=== PATIENT | female | born 1990 | race Caucasian/White ===

== ENCOUNTER 2025-01-08 20:41 | Outpatient (CLI) | payer BC, SELFPAY ==
[2025-01-08 21:01] VITALS: BP 119/65; PULSE 79
[2025-01-08 21:16] VITALS: BP 116/70; PULSE 82
[2025-01-08 21:31] VITALS: BP 122/64; PULSE 81
[2025-01-08 21:50] VITALS: BP 119/65; PULSE 65
--- NOTE | 2025-01-08 22:14 | PC.NURSE ---
Pt discharged in stable condition per order from Dr. Ocasio. Discharge orders explained. All questions and conerns answered. Pt amubalted out of department with all belongings. S.O @ pt side.
--- OUTSIDE RECORDS SUMMARY | 2025-01-09 15:32 | XMS_ITS | Encounter Summary ---
Author Organization [facility] Address [address] [place] [address] Care Team Providers Care Technical Applications Scientist Name Role Phone Maryann Pool DO Primary Care Provider [phone] Encounter Details Date Type Department Care Team (Late st Contact Info) Description 06/26/2023 Lab Requisition [facility] Laboratory Services [facility] [address] [place] [address] [place] [address] [address] [place] [address] Social History Tobacco Use Types Packs/Day Years Used Date Smoking Tobacco: Never Smokeless Tobacco: Never Alcohol Use Standard Drinks/Week Comments Yes 0 (1 standard drink = 0.6 oz pur e alcohol) Comments No Sex and Gender Information Value Date Recorded Sex Assigned at Not on file Legal Sex Female 9:47 PM CDT Gender Identity Not on file Sexual Orientation Not on file documented as of this encounter Plan of Treatment Not on file documented as of this encounter Procedures Procedure Name Priority Date/Time Associated Diagnosis Comments SOURCE NEEDLESTICK PANEL Stat 06/26/2023 3:05 PM CDT EXPOSURE PANEL COMPLETION Stat 06/26/2023 3:05 PM CDT EXPOSURE PANEL COMPLETION Stat 06/26/2023 3:05 PM CDT EXPOSED NEEDLESTICK PANEL Stat 06/26/2023 3:05 PM CDT HIV DETECTION W/REFLX CONFIRMATION Stat 06/26/2023 3:05 PM CDT HIV DETECTION W/REFLX CONFIRMATION Stat 06/26/2023 3:05 PM CDT HEPATITIS C RNA PCR, QUANTITATIVE Stat 06/26/2023 3:05 PM CDT HEPATITIS B SURFACE ANTIGEN Stat 06/26/2023 3:05 PM CDT HEPATITIS C ANTIBODY Stat 06/26/2023 3:05 PM CDT documented in this encounter Results * EXPOSURE PANEL COMPLETION (06/26/2023 3:05 PM CDT) EXPOSURE PANEL RECEIVED Yes 06/27/2023 9:31 AM CDT [facility] Blood 06/26/2023 3:05 PM CDT 06/27/2023 9:14 AM CDT Pierre Torrez MD CHEMISTRY ORDERABLES Final R esult [facility] CLIA# [id number] [address] [place] [address] * HEPATITIS B SURFACE ANTIGEN (06/26/2023 3:05 PM CDT) Pathologist [facility] HEPATITIS B SURFACE AG NON-REACT LÁZARO Non-react lázaro 06/27/2023 10:07 AM CDT [facility] Comment:A non-reactive test result does not exclude the possibility of exposure to or infection with hepatitis B. Blood 06/26/2023 3:05 PM CDT 06/27/2023 9:14 AM CDT Pierre Torrez MD CHEMISTRY ORDERABLES Final R esult [facility] CLIA# [id number] [address] [facility] [place] [address] * HEPATITIS C RNA PCR, QUANTITATIVE (06/26/2023 3:05 PM CDT) HCV RNA, QUANT REAL TIME PCR <15 NOT DETECTED NOT DETECTED IU/mL 06/28/2023 12:45 PM CDT [facility] HCV RNA QUANT PCR COPIES IU/ML <1.18 NOT DETECTED NOT DETECTED Log IU/mL 06/28/2023 12:45 PM CDT [facility] Comment: This test was performed using Real-Time Polymerase Chain Reaction. Reportable Range: 15 IU/mL to 100,000,000 IU/mL (1.18 Log IU/mL to 8.00 Log IU/mL). The analytical performance characteristics of this assay have been determined by [employer]. The modifications have not been cleared or approved by the FDA. This assay has been validated pursuant to the CLIA regulations and is used for clinical purposes. For more information on this test, go to: http://education.Ctrax/faq/BPR63z1 (This link is being provided for informational/ educational purposes only.) Blood 06/26/2023 3:05 PM CDT 06/27/2023 9:14 AM CDT Narrative [facility] - 06/28/2023 12:45 PM CDT Performing Organization Information: Site ID: [place] Name[facility] Address: [address] [place] [address] [place] [address] Director: Aureliano Falcon MD Pierre Torrez MD CHEMISTRY ORDERABLES Final R esult [facility] [phone] * HIV DETECTION W/REFLX CONFIRMATION (06/26/2023 3:05 PM CDT) Pathologist [facility] HIV-1 AND 2 ABS AND HIV-1 AG Non-reacti ve Non-reacti ve 06/27/2023 9:30 AM CDT [facility] Blood 06/26/2023 3:05 PM CDT 06/27/2023 9:14 AM CDT Narrative [facility] - 06/27/2023 9:30 AM CDT Initial HIV testing was performed by [employer] on the Nasima Dionisio e602 module. Values obtained with different assay methods cannot be used interchangeably. Non- Reactive results does not rule out HIV infection. If acute HIV-1 infection is suspected, submit plasma specimen for HIV-1 RNA quantification test (HIVQU). Pierre Torrez MD CHEMISTRY ORDERABLES Final R esult Performing Organization Address City/[facility] Co de Phone Number [facility] CLIA# [id number] [address] [place] [address] * EXPOSURE PANEL COMPLETION (06/26/2023 3:05 PM CDT) [facility] EXPOSURE PANEL RECEIVED Yes 06/26/2023 4:31 PM CDT [facility] Blood 06/26/2023 3:05 PM CDT 06/26/2023 3:19 PM CDT Pierre Torrez MD CHEMISTRY ORDERABLES Final R esult Performing Organization Address [facility] Co de Phone Number [facility] CLIA# [id number] [address] [place] [address] * HEPATITIS C ANTIBODY W REFLEX (06/26/2023 3:05 PM CDT) Pathologist [facility] HEPATITIS C AB NON-REACT LÁZARO Non-react lázaro 06/26/2023 4:09 PM CDT [facility] Comment:Antibodies to HCV we re not detected, does not exclude the possibility of exposure to HCV. Blood 06/26/2023 3:05 PM CDT 06/26/2023 3:19 PM CDT Pierre Torrez MD CHEMISTRY ORDERABLES Final R esult Performing Organization Address City/[facility] Co de Phone Number [facility] [employer] [facility]# [id number] [address] [place] [address] * HIV DETECTION W/REFLX CONFIRMATION (06/26/2023 3:05 PM CDT) HIV-1 AND 2 ABS AND HIV-1 AG Non-reacti ve Non-reacti ve 06/26/2023 4:09 PM CDT [facility] [employer] [facility] Blood 06/26/2023 3:05 PM CDT 06/26/2023 3:19 PM CDT Narrative [facility] [employer] [facility] - 06/26/2023 4:09 PM CDT Initial HIV testing was performed by [employer] on the Nasima Dionisio e602 module. Values obtained with different assay methods cannot be used interchangeably. Non- Reactive results does not rule out HIV infection. If acute HIV-1 infection is suspected, submit plasma specimen for HIV-1 RNA quantification test (HIVQU). Pierre Torrez MD CHEMISTRY ORDERABLES Final R esult Performing Organization Address City/[facility]/ZIP Co de Phone Number [facility] [employer] [facility]# [id number] [address] [place] [address] documented in this encounter Visit Diagnoses Not on filedocumented in this encounter Care Teams Technical Applications Scientist Relationship Specialty [place] [address] [place] [phone] PCP - General Internal Medicine 08/14/23 documented as of this encounter
--- OUTSIDE RECORDS SUMMARY | 2025-01-09 15:32 | XMS_ITS | Clinical Summary ---
Author Organization [facility] Address [address] [place] [address] Phone Care Team Providers Care Reduction Furnace Operator Helper Name Role Phone Maryann Pool DO Primary Care Provider [phone] Allergies Active Allergy Reactions Criticality Noted Date Comments Avocado Nausea and Vomiting Low 04/25/2023 Banana Diarrhea Low 08/03/2020 Latex Hives High 08/03/2020 Medications ibuprofen (MOTRIN) 200 mg tablet Take 400 mg by mouth every 6 hours as needed for Pain, Mild. Active MELATONIN ORAL Take 10 mg by mouth daily at bedtime. Active acetaminophen (TYLENOL) 325 mg tabletIndication s:Chronic bilateral low back pain with bilateral sciatica Take 2 Tablets (650 mg) by mouth every 6 hours as needed for Pain, Break-Through. 0 Active sulfamethoxazole -trimethoprim (BACTRIM) 400-80 mg tabletIndication s:Need for prophylaxis against urinary tract infection Take 1 Tablet by mouth 1 time daily as needed (after intercourse). 50 Tablet 3 09/05/2022 1:48 PM CAMPAIGN MANAGEMENT SPECIALIST 2 Active hydrocortisone (HYTONE) 2.5 % Cream Apply topically a thin layer to upper eyelid twice daily for up to 1 week as needed for flares 30 Gram 2 09/26/2022 12:29 PM CAMPAIGN MANAGEMENT SPECIALIST 3 Active Mometasone (ELOCON) 0.1 % Solution Apply small amount to scalp, neck and ears twice daily x 1-2 weeks as needed for itch 60 mL 3 09/26/2022 12:29 PM CAMPAIGN MANAGEMENT SPECIALIST 3 Active selenium sulfide (SELSUN) 2.5 % Lotion Apply topically to scalp let sit 5 min then rinse daily as needed 120 mL 10 09/26/2022 12:29 PM CAMPAIGN MANAGEMENT SPECIALIST 3 Active sertraline (Zoloft) 25 mg tabletIndication s:MATILDA (generalized anxiety disorder) Take 1 Tablet (25 mg) by mouth daily. 30 Tablet 1 05/06/2024 8:45 AM CDT 4 Active Active Problems Problem Noted Date Diagnosed Date MATILDA (generalized anxiety disorder) 04/27/2024 Chronic bilateral low back pain with bilateral s ciatica 08/10/2021 Overview (08/10/2021): Will prescribe steroid taper if has a flair up. Exercising and eating healthy to prevent. Need for prophylaxis against urinary tract infec tion 08/03/2020 IUD (intrauterine device) in place 08/03/2020 Overview (08/03/2020): Paraguard 06/2019. Expires 2028. Encounters Date Type Department Care Team Description 12/22/2024 External Device Data [facility] ABSTRACTION Provider, Abstract 11/25/2024 External Device Data [facility] ABSTRACTION Provider, Abstract 11/25/2024 External Device Data [facility] ABSTRACTION Provider, Abstract 11/14/2024 External Device Data [facility] ABSTRACTION Provider, Abstract 11/13/2024 External Device Data [facility] ABSTRACTION Provider, Abstract 11/10/2024 External Device Data [facility] ABSTRACTION Provider, Abstract 10/28/2024 External Device Data [facility] ABSTRACTION Provider, Abstract 10/27/2024 External Device Data [facility] ABSTRACTION Provider, Abstract from Last 3 Months Immunizations Immunization Administration Dates Next Due (ACTHIB/HIBERIX)(2 MOS-5 YRS /6 WKS-4 YRS) HAEMOPHILUS INFLUENZAE TYPE B VACCINE (HIB), PRP-T CONJUGATE, 4 DOSE, 0.5 ML IM 06/17/1993 (ADACEL/BOOSTRIX)(10 YR UP) TDAP VACCINE, 0.5ML, IM 12/11/2018 (GARDASIL)(9-45 YRS) HUMAN PAPILLOMAVIRUS VACCINE, TYPES 6, 11, 16, 18, QUADRIVALENT (4VHPV), 3 DOSE, IM 11/20/2010 (INFANRIX)(6 WKS-6 YRS) DIPT HERIA, TETANUS TOXOIDS, AND ACCELLULAR PERTUSSIS VACCINE (DTAP), 0.5 ML IM 06/17/1993,1989,1989 (IPOL)(6 WKS AND UP) POLIOVI LOBO VACCINE, INACTIVATED (IPV), 3 DOSE, SUBCUT OR IM 06/17/1993,1989,1989 (M-M-R II/PRIORIX)(12 MO UP) MEASLES, MUMPS AND RUBELLA VIRUS VACCINE, 0.5 ML IM/SUBCUT 01/12/1994,06/17/1993 (MENACTRA)(9 MO-55 YR) MENIN GOCOCCAL POLYSACCHARIDE A, C, Y AND W-135 DIPTHERIA TOXOID CONJUGATE VACCINE, (PF), 0.5ML, IM 12/05/2006 (PFIZER)(12 YR UP) COVID-19 VACCINE - EMERGENCY USE AUTHORIZATION, MRNA, [id number](PF) 30 MCG/0.3 ML IM SUSP 08/08/2021,09/23/2020,08/31/2020 (RECOMBIVAX HB/ENGERIX-B)(11 YR UP) HEPATITIS B VACCINE 10 MCG/1 ML OR 20 MCG/1 ML ADOL OR ADULT 2 - 3 DOSE PF, IM 02/01/2021,11/04/2020,08/03/2020 (VARIVAX)(12 MOS UP)VARICELL A VIRUS VACCINE (PF) 0.5 ML, SUB CUT 12/29/2018 DTP IM 04/19/2000,04/05/1990 Hepatitis B Vaccine 12/29/2000,05/31/2000,1999 Influenza Seasonal Unspecifi ed Formulation IM 06/09/2024,05/17/2023,06/20/2022,05/16,06/28/2020,06/01/2019,07/01/2018 Family History Medical History Relation Name Comments Thyroid Disease Brother Rylan Arceo Hypothyroidi sm Diabetes Father Klever Arceo Heart Disease Father Klever Chaudharyuld Breast Cancer Maternal Grandmother Tangela Adis Relation Name Status Comments Brother Rylan Arceo Alive Father Klever Arceo Maternal Grandmother Tangela Adis Mother Alive Social History Tobacco Use Types Packs/Day Years Used Date Smoking Tobacco: Never Passive Smoke Exposure: Never Smokeless Tobacco: Never Tobacco Cessation:Counseling Given: No Comments:Never Alcohol Use Standard Drinks/Week Comments Not Currently 1 (1 standard drink = 0.6 oz pure alcohol) Socially, a couple times a month Comments No Sex and Gender Information Value Date Recorded Sex Assigned at Not on file Legal Sex Female 9:47 PM CDT Gender Identity Not on file Sexual Orientation Not on file Last Filed Vital Signs Vital Sign Reading Time Taken Comments Blood Pressure 122/64 04/23/2024 3:22 PM CDT Pulse 79 03/26/2024 7:56 AM CDT Temperature 36.6 C (97.8 F) 03/26/2024 7:56 AM CDT Respiratory Rate 14 08/10/2021 4:22 PM CAMPAIGN MANAGEMENT SPECIALIST Oxygen Saturation 99% 03/26/2024 7:56 AM CDT Inhaled Oxygen Concentration - - Weight 86.2 kg (190 lb) 04/27/2024 9:49 AM CDT Height 172.7 cm (5' 8 ) 04/27/2024 9:49 AM CDT Body Mass Index 28.89 04/27/2024 9:49 AM CDT Plan of Treatment Health Maintenance Due Date Last Done Comments HPV VACCINES (2 - 3-dose series) 12/18/2010 11/21/19 11 COVID-19 Vaccine (2023-2 5 season) 2024 08/08/2021, 09/23/2020, 08/31/2020 Preventative Visit- Commercial 09/09/2024 1 10/15/2022, 04/25/2023, 09/04/2022, Additional history exists PAP SMEAR 04/25/2026 04/25/2023, 09/09/2018 Pre-Diabetes and Diabetes Screening 08/23/2026 08/23/2023, 09/12/2022, 08/19/2020 CERVICAL CANCER SCREENING 04/25/2028 HPV/Cotest (21-29) 04/25/2028 04/25/2023 HPV/Cotest (30-65) 04/25/2028 04/25/2023 DTAP/TDAP/TD VACCINES (5 - T d or Tdap) 12/11/2028 12/11/2018, 06/17/1993, 1989, Additional history exists HEPATITIS B VACCINES Completed 02/01/2021, 11/04/2020, 08/03/2020, Additional history exists INFLUENZA VACCINE Completed 06/09/2024, , 06/20/2022, Additional history exists Procedures Procedure Name Priority Date/Time Associated Diagnosis Comments HEMOGLOBIN A1C Routine 08/23/2023 9:14 AM CAMPAIGN MANAGEMENT SPECIALIST Annual physical exam Screening for diabetes mellitus CERV/VAG CYTO AGE BASED SCREEN PAP Routine 04/25/2023 10:53 AM CDT Well woman exam with routine gynecological exam from Last 3 Months or Most Recently Relevant to Health Maintenance Results * HEMOGLOBIN A1C (08/23/2023 9:14 AM CAMPAIGN MANAGEMENT SPECIALIST) HEMOGLOBIN A1C 4.9 <5.7 % of total Hgb [employer] Comment: For the purpose of screening for the presence of diabetes: <5.7% Consistent with the absence of diabetes 5.7-6.4% Consistent with increased risk for diabetes (prediabetes) > or =6.5% Consistent with diabetes This assay result is consistent with a decreased risk of diabetes. Currently, no consensus exists regarding use of hemoglobin A1c for diagnosis of diabetes in children. According to [place] Diabetes Association (ADA) guidelines, hemoglobin A1c <7.0% represents optimal control in non- diabetic patients. Different metrics may apply to specific patient populations. Standards of Medical Care in Diabetes(ADA). ESTIMATED AVERAGE GLUCOSE (MG/DL) 94 mg/dL [employer] [facility] ESTIMATED AVERAGE GLUCOSE (MMOL/L) 5.2 mmol/L [employer] Comment: FASTING:YES FASTING: YES Test Performed at: [place] [address] [place] [address] [facility] Blood 08/23/2023 9:14 AM CAMPAIGN MANAGEMENT SPECIALIST 08/23/2023 9:15 AM CAMPAIGN MANAGEMENT SPECIALIST us Maryann Pool DO CHEMISTRY ORDERABLES Final Resul t [facility] [phone] [place] [address] [address] [place] [phone] * (ABNORMAL) CERV/VAG CYTO AGE BASED SCREEN PAP (04/25/2023 10:53 AM CDT) COMMENT (PAP): [facility] [place] Comment: This order for age-based cervical cancer and STI screening follows ACOG guidelines(PB 168, 140, PCC032). See individual assays for performing site location. CLINICAL INFORMATION [facility] [place] Comment:None given LAST MENSTRUAL PERIOD [facility] [place] Comment:[id number] PREV PAP: [facility] [place] Comment:NONE GIVEN PREV BX: [facility] [place] Comment:NONE GIVEN SOURCE [facility] [place] Comment:Endocervix ADEQUACY: [facility] [place] Comment: Satisfactory for evaluation. Endocervical/transformation zone component present. PAP INTERP [facility] [place] Comment: Cytology Results: Negative for intraepithelial lesion or malignancy. COMMENT (PAP TEST) [facility] [place] Comment: This Pap test has been evaluated with computer assisted technology. VISUAL ARTIST: Delfino est Agusto Gao Comment: BHAVANAK CT(ASCP) CT screening location: [place] [address] [address] [facility] REVIEW VISUAL ARTIST: [employer] BiosciencesJodie Gao Comment: SHIRLEY LEVINE(ASCP) CT screening location: [place] [address] [address] [facility] EXPLANATORY NOTE [employer] Agusto Gao Comment: EXPLANATORY NOTE: The Pap is a screening test for cervical cancer. It is not a diagnostic test and is subject to false negative and false positive results. It is most reliable when a satisfactory sample, regularly obtained, is submitted with relevant clinical findings and history, and when the Pap result is evaluated along with historic and current clinical information. HPV E6/E7 Detected(A) Not Detected [facility] Comment: Methodology: Ski Binding Fitter And Repairer-Mediated Amplification This assay detects E6/E7 viral messenger RNA (mRNA) from 14 high-risk HPV types (16,18,31,33,35,39,45,51,52,56,58,59,66,68). Cervical sources are required for HPV testing. If a vaginal source from a patient who has had a total hysterectomy with removal of cervix was submitted, please contact the testing laboratory for alternative testing options. For additional information, please refer to http://education.[place]/faq/ZQQ523d2 (This link if provided for information/ educational purposes only.) HPV 16 RNA NOT DETECTED NOT DETECTED [employer] HPV 18/45 RNA NOT DETECTED NOT DETECTED [employer] [facility] [place] Comment: Methodology: Ski Binding Fitter And Repairer Mediated Amplification Cervical sources are required for HPV testing. If a vaginal source from a patient who has had a total hysterectomy with removal of cervix was submitted, please contact the testing laboratory for alternative testing options. Test Performed at: [facility] [address] [facility] [place] [address] Aureliano SOTO Genital SWAB OF ENDOCERVIX / Unknown 04/25/2023 10:53 AM CDT 04/25/2023 2:14 PM CDT Dahlia Maldonado SHEET COMBINING OPERATOR PATHOLOGY/CYTOLOGY ORDERABLES F inal Result [facility] [phone] [place] [address] [address] [place] [address] from Last 3 Months or Most Recently Relevant to Health Maintenance Insurance RX [employer] PLANS (INTERNAL) [facility] [employer] [facility] [employer] Care Teams Reduction Furnace Operator Helper Relationship Specialty [place] [address] [facility] [address] [place] [id number] PCP - General Internal Medicine 08/14/23
== END 2025-01-08 21:45 | disposition home or self-care (01) ==
LOC: ANHOBOP 20:57 → ANHOBPP 20:59
PROVIDERS: Visit Provider Obstetrics & Gynecology
DX: Z34.90 Encounter for supervision of normal pregnancy, unspecified, unspecified trimester (principal); Z3A.00 Weeks of gestation of pregnancy not specified
CPT/HCPCS: 59025; 99199

== ENCOUNTER 2025-04-08 16:25 | Outpatient (RCR) | payer BC, SELFPAY ==
[2025-04-03 12:28] VITALS: BP 128/83; PULSE 97
[2025-04-08 17:02] VITALS: BP 133/82; PULSE 92
== END 2025-04-13 11:45 | disposition home or self-care (01) ==
LOC: ANHOBOP 16:25
PROVIDERS: Visit Provider Obstetrics & Gynecology
DX: O36.8130 Decreased fetal movements, third trimester, not applicable or unspecified (principal); Z3A.39 39 weeks gestation of pregnancy; Z3A.40 40 weeks gestation of pregnancy
CPT/HCPCS: 59025

== ENCOUNTER 2025-04-11 15:56 | Inpatient (IN) | payer BC, SELFPAY ==
[2025-04-11] VITALS (30 sets, daily range): BP systolic 130–158; BP diastolic 75–98; PULSE 75–89; TEMP 36.6; BMI 35.4
--- NOTE | 2025-04-11 15:56 | LDADM ---
This patient, Flaca Villarreal, was admitted to Labor/Delivery/Recovery 108 on 04/11/25 at 15:56. Plans for labor, pain management and were discussed with patient. Patient/family oriented to hospital policies and general routines including ID bracelet, bed and alarms, visiting hours, pain management, procedures, bathroom and other care routines, personal items, smoking policy, room service/diet and guest tray routines, security routines, and visiting hours. Patient/Family are encouraged to report perceived risks to care and to ask questions if they do not understand what they are told or what they should do. See OBIX for further documentation.
--- OUTSIDE RECORDS SUMMARY | 2025-04-11 15:59 | XMS_ITS | Encounter Summary ---
Author Organization [facility] Address [address] [place] [address] Care Team Providers Care Distribution Field Technician Name Role Phone Maryann Pool DO Primary Care Provider [phone] Encounter Details Date Type Department Care Team (Late st Contact Info) Description 06/26/2023 Lab Requisition [facility] Laboratory Services [facility] [address] [place] [address] [place] [address] [facility] [address] [place] [address] Social History Tobacco Use Types [...] PANEL RECEIVED Yes 06/27/2023 9:31 AM CDT [facility] Blood 06/26/2023 3:05 PM CDT 06/27/2023 9:14 AM CDT Pierre Torrez MD CHEMISTRY ORDERABLES Final R esult [facility] CLIA# [id number] [address] [place] [address] * HEPATITIS B SURFACE ANTIGEN (06/26/2023 3:05 PM CDT) Pathologist [facility] HEPATITIS B SURFACE AG NON-REACT LÁZARO Non-react lázaro 06/27/2023 10:07 AM CDT [facility] Comment:A non-reactive test result does not exclude the possibility of exposure to or infection with hepatitis B. Blood 06/26/2023 3:05 PM CDT 06/27/2023 9:14 AM CDT Pierre Torrez MD CHEMISTRY ORDERABLES Final R esult [facility] CLIA# [id number] [address] [facility] [place] [address] * HEPATITIS C RNA PCR, QUANTITATIVE (06/26/2023 3:05 PM CDT) HCV RNA, QUANT REAL TIME PCR <15 NOT DETECTED NOT DETECTED IU/mL 06/28/2023 12:45 PM CDT [facility] HCV RNA QUANT PCR COPIES IU/ML <1.18 NOT DETECTED NOT DETECTED Log IU/mL 06/28/2023 12:45 PM CDT [facility] Comment: This test was performed using Real-Time Polymerase Chain Reaction. Reportable Range: 15 IU/mL to 100,000,000 IU/mL (1.18 Log IU/mL to 8.00 Log IU/mL). The analytical performance characteristics of this assay have been determined by [employer]. The modifications have not been cleared or approved by the FDA. This assay has been validated pursuant to the CLIA regulations and is used for clinical purposes. For more information on this test, go to: http://education.Brainrack/faq/WLE53e9 (This link is being provided for informational/ educational purposes only.) Blood 06/26/2023 3:05 PM CDT 06/27/2023 9:14 AM CDT Narrative [facility] - 06/28/2023 12:45 PM CDT Performing Organization Information: Site ID: [id number] Name: [facility] Address: [address] [place] [address] [place] [address] Director: Aureliano Falcon MD Pierre Torrez MD CHEMISTRY ORDERABLES Final R esult [facility] [phone] * HIV DETECTION W/REFLX CONFIRMATION (06/26/2023 3:05 PM CDT) Pathologist [facility] HIV-1 AND 2 ABS AND HIV-1 AG Non-reacti ve Non-reacti ve 06/27/2023 9:30 AM CDT [facility] Blood 06/26/2023 3:05 PM CDT 06/27/2023 9:14 AM CDT Narrative [facility] - 06/27/2023 9:30 AM CDT Initial HIV testing was performed by [employer] on the Nasima Dionisio e602 module. Values obtained with different assay methods cannot be used interchangeably. Non- Reactive results does not rule out HIV infection. If acute HIV-1 infection is suspected, submit plasma specimen for HIV-1 RNA quantification test (HIVQU). Pierre Torrez MD CHEMISTRY ORDERABLES Final R esult Performing Organization Address [facility] Co de Phone Number [facility] CLIA# [id number] [address] [place] [address] * EXPOSURE PANEL COMPLETION (06/26/2023 3:05 PM CDT) [facility] EXPOSURE PANEL RECEIVED Yes 06/26/2023 4:31 PM CDT [facility] Blood 06/26/2023 3:05 PM CDT 06/26/2023 3:19 PM CDT Pierre Torrez MD CHEMISTRY ORDERABLES Final R esult Performing Organization Address [facility] Co de Phone Number [facility] CLIA# [id number] [address] [place] [address] * HEPATITIS C ANTIBODY W REFLEX (06/26/2023 3:05 PM CDT) Pathologist [facility] HEPATITIS C AB NON-REACT LÁZARO Non-react lázaro 06/26/2023 4:09 PM CDT [facility] Comment:Antibodies to HCV we re not detected, does not exclude the possibility of exposure to HCV. Blood 06/26/2023 3:05 PM CDT 06/26/2023 3:19 PM CDT Pierre Torrez MD CHEMISTRY ORDERABLES Final R esult Performing Organization Address [facility] Co de Phone Number [facility]# [id number] [address] [place] [address] * HIV DETECTION W/REFLX CONFIRMATION (06/26/2023 3:05 PM CDT) HIV-1 AND 2 ABS AND HIV-1 AG Non-reacti ve Non-reacti ve 06/26/2023 4:09 PM CDT [facility] Blood 06/26/2023 3:05 PM CDT 06/26/2023 3:19 PM CDT Narrative [facility] - 06/26/2023 4:09 PM CDT Initial HIV testing was performed by [employer]CL[employer] on the Nasima Dionisio e602 module. Values obtained with different assay methods cannot be used interchangeably. Non- Reactive results does not rule out HIV infection. If acute HIV-1 infection is suspected, submit plasma specimen for HIV-1 RNA quantification test (HIVQU). Pierre Torrez MD CHEMISTRY ORDERABLES Final R esult Performing Organization Address [facility]/ZIP Co de Phone Number [facility]# [id number] [address] [place] [address] documented in this encounter Visit Diagnoses Not on filedocumented in this encounter Care Teams Distribution Field Technician Relationship Specialty [place] [address] [place] [phone] PCP - General Internal Medicine 08/14/23 documented as of this encounter
--- OUTSIDE RECORDS SUMMARY | 2025-04-11 15:59 | XMS_ITS | Clinical Summary ---
Author Organization [facility] Address [address] [place] [address] Phone Care Team Providers Care Grinding Room Supervisor Name Role Phone Maryann Pool DO Primary Care Provider [phone] Allergies Active Allergy Reactions Criticality Noted Date [...] intercourse). 50 Tablet 3 09/05/2022 1:48 PM [employer]ION [employer] EQUIPMENT SUPERVISOR 2 Active hydrocortisone (HYTONE) 2.5 % Cream Apply topically a thin layer to upper eyelid twice daily for up to 1 week as needed for flares 30 Gram 2 09/26/2022 12:29 PM [employer]ION [employer]URE EQUIPMENT SUPERVISOR 3 Active Mometasone (ELOCON) 0.1 % Solution Apply small amount to scalp, neck and ears twice daily x 1-2 weeks as needed for itch 60 mL 3 09/26/2022 12:29 PM MOTION PI[employer]URE EQUIPMENT SUPERVISOR 3 Active selenium sulfide (SELSUN) 2.5 % Lotion Apply topically to scalp let sit 5 min then rinse daily as needed 120 mL 10 09/26/2022 12:29 PM MOTION PI[employer]URE EQUIPMENT SUPERVISOR 3 Active sertraline (Zoloft) 25 mg tabletIndication [...] Encounters Date Type Department Care Team Description 03/24/2025 External Device Data ST[facility] ABSTRACTION Provider, Abstract 03/23/2025 External Device Data [facility] ABSTRACTION Provider, Abstract 03/02/2025 External Device Data [facility] ABSTRACTION Provider, Abstract 02/23/2025 External Device Data [facility] ABSTRACTION Provider, Abstract 01/28/2025 External Device Data ST[facility] ABSTRACTION Provider, Abstract 01/27/2025 External Device Data ST[facility] ABSTRACTION Provider, Abstract 01/26/2025 External Device Data ST[facility] ABSTRACTION Provider, Abstract [...] COVID-19 VACCINE - EMERGENCY USE AUTHORIZATION, MRNA, [id number](PF) 30 MCG/0.3 ML IM SUSP 08/08/2021,09/23/2020,08/31/2020 (RECOMBIVAX [...] Father Klever Arceo Heart Disease Father Klever Arceo Breast Cancer Maternal Grandmother Tangela Arceo Relation Name Status Comments Brother Rylan Arceo Alive Father Klever Arceo Maternal Grandmother Tangela Arceo Mother Alive Social History Tobacco Use Types [...] CDT Respiratory Rate 14 08/10/2021 4:22 PM MOTION PI[employer]URE EQUIPMENT SUPERVISOR Oxygen Saturation 99% 03/26/2024 7:56 AM CDT Inhaled Oxygen Concentration - - Weight 86.2 kg (190 lb) 04/27/2024 9:49 AM CDT Height 172.7 cm (5' 8) 04/27/2024 9:49 AM CDT Body Mass Index 28.89 04/27/2024 9:49 AM CDT Plan of Treatment Health Maintenance Due Date Last Done Comments HPV VACCINES (2 - 3-dose series) 12/18/2010 11/21/19 11 COVID-19 Vaccine (2023-2 5 season) 2024 08/08/2021, 09/23/2020, 08/31/2020 Preventative Visit- Commercial 09/09/2024 1 10/15/2022, 04/25/2023, 09/04/2022, Additional history exists INFLUENZA VACCINE (#1) 2025 , 05/17/2023, 06/20/2022, Additional history exists PAP SMEAR 04/25/2026 04/25/2023, 09/09/2018 Pre-Diabetes and Diabetes Screening 08/23/2026 08/23/2023, 09/12/2022, 08/19/2020 CERVICAL CANCER SCREENING 04/25/2028 HPV/Cotest (21-29) 04/25/2028 04/25/2023 HPV/Cotest (30-65) 04/25/2028 04/25/2023 DTAP/TDAP/TD VACCINES (5 - T d or Tdap) 12/11/2028 12/11/2018, 06/17/1993, 1989, Additional history exists HEPATITIS B VACCINES Completed 02/01/2021, 11/04/2020, 08/03/2020, Additional history exists Procedures Procedure Name Priority Date/Time Associated Diagnosis Comments HEMOGLOBIN A1C Routine 08/23/2023 9:14 AM [employer]ION [employer] EQUIPMENT SUPERVISOR Annual physical exam Screening for diabetes mellitus CERV/VAG CYTO AGE BASED SCREEN PAP Routine 04/25/2023 10:53 AM CDT Well woman exam with routine gynecological exam from Last 3 Months or Most Recently Relevant to Health Maintenance Results * HEMOGLOBIN A1C (08/23/2023 9:14 AM MOTION PICTURE EQUIPMENT SUPERVISOR) HEMOGLOBIN A1C 4.9 <5.7 % of total Hgb [facility] Comment: For the purpose of screening for the presence of diabetes: <5.7% Consistent with the absence of diabetes 5.7-6.4% Consistent with increased risk for diabetes (prediabetes) > or =6.5% Consistent with diabetes This assay result is consistent with a decreased risk of diabetes. Currently, no consensus exists regarding use of hemoglobin A1c for diagnosis of diabetes in children. According to [place] Diabetes Association (ADA) guidelines, hemoglobin A1c <7.0% represents optimal control in non- diabetic patients. Different metrics may apply to specific patient populations. Standards of Medical Care in Diabetes(ADA). ESTIMATED AVERAGE GLUCOSE (MG/DL) 94 mg/dL [facility] ESTIMATED AVERAGE GLUCOSE (MMOL/L) 5.2 mmol/L [facility] Comment: FASTING:YES FASTING: YES Test Performed at: [place] [place] [address] [place] [address] [facility]i Vo Blood 08/23/2023 9:14 AM MOTION PICTURE EQUIPMENT SUPERVISOR 08/23/2023 9:15 AM MOTION PICTURE EQUIPMENT SUPERVISOR us Maryann Pool DO CHEMISTRY ORDERABLES Final Resul t [facility] [phone] [place] [address] [address] [place] [address] * (ABNORMAL) CERV/VAG CYTO AGE BASED SCREEN PAP (04/25/2023 10:53 AM CDT) COMMENT (PAP): [facility] Comment: This order for age-based cervical cancer and STI screening follows ACOG guidelines(PB 168, 140, LVI101). See individual assays for performing site location. CLINICAL INFORMATION [facility] Comment:None given LAST MENSTRUAL PERIOD [facility] Comment:[id number] PREV PAP: [facility] Comment:NONE GIVEN PREV BX: [facility] Comment:NONE GIVEN SOURCE [facility] Comment:Endocervix ADEQUACY: [facility] Comment: Satisfactory for evaluation. Endocervical/transformation zone component present. PAP INTERP [facility] Comment: Cytology Results: Negative for intraepithelial lesion or malignancy. COMMENT (PAP TEST) [facility] Comment: This Pap test has been evaluated with computer assisted technology. PHARMACY OPERATIONS SPECIALIST: Delfino est Agusto Gao Comment: TMK, CT(ASCP) CT screening location: [place] [address] [place] [address] REVIEW PHARMACY OPERATIONS SPECIALIST: Lili eduPadJodie Gao Comment: ABNER, CT(ASCP) CT screening location: [place] [address] [facility] EXPLANATORY NOTE Que Natanael Ulien Agusto Gao Comment: EXPLANATORY NOTE: The Pap [...] clinical information. HPV E6/E7 Detected(A) Not Detected [facility] Comment: Methodology: Forestry Support Specialist-Mediated Amplification This assay detects E6/E7 viral messenger RNA (mRNA) from 14 high-risk HPV types (16,18,31,33,35,39,45,51,52,56,58,59,66,68). Cervical sources are required for HPV testing. If a vaginal source from a patient who has had a total hysterectomy with removal of cervix was submitted, please contact the testing laboratory for alternative testing options. For additional information, please refer to http://education.Sliced Apples/faq/TIJ234z8 (This link if provided for information/ educational purposes only.) HPV 16 RNA NOT DETECTED NOT DETECTED [facility] HPV 18/45 RNA NOT DETECTED NOT DETECTED [facility] Comment: Methodology: Forestry Support Specialist Mediated Amplification Cervical sources are required for HPV testing. If a vaginal source from a patient who has had a total hysterectomy with removal of cervix was submitted, please contact the testing laboratory for alternative testing options. Test Performed at: [facility] [address] [place] [address] Aureliano SOTO Genital SWAB OF ENDOCERVIX / Unknown 04/25/2023 10:53 AM CDT 04/25/2023 2:14 PM CDT Dahlia Maldonado NP PATHOLOGY/CYTOLOGY ORDERABLES F inal Result [facility] [phone] [facility] [address] [place] [address] from Last 3 Months or Most Recently Relevant to Health Maintenance Insurance RX [employer] PLANS (INTERNAL) [facility] [employer] Care Teams Grinding Room Supervisor Relationship Specialty [place] [address] [facility] [address] [place] [phone] PCP - General Internal Medicine 08/14/23
[2025-04-11 16:35] LABS: Hematocrit 36.0 % (37.0-47.0); Hemoglobin 11.7 g/dL (12.0-15.0); Immature Granulocyte Percent A 1.2 % (0-0.5); Lymphocytes Absolute Auto 1.20 K/mm3 (0.9-3.2); Mean Corpuscular HGB Conc 32.5 g/dl (32-36); Mean Corpuscular Hemoglobin 27.4 pg (26-34); Mean Corpuscular Volume 84.3 fl (80-100); Nucleated Red Blood Cells Absolute Auto 0.000 K/mm3 (0.0-0.012); Nucleated Red Blood Cells Perc 0.0 % (0.0-0.2); Platelet Count Result 158 k/mm3 (150-375); Red Blood Count 4.27 M/mm3 (4.2-5.4); White Blood Count 9.5 K/mm3 (4.5-10.0)
[2025-04-11] MEDS: DINOPROSTONE 10 MG VAG INSERT VAGINAL (16:57)
[2025-04-11 17:20] LABS: Syphilis IgG/IgM Antibody Non-Reactive (Nonreactive)
--- NOTE | 2025-04-11 19:40 | P.PNAN_ITS ---
Anes - Eval Pre Procedure Procedure: labor epidural Date/Time: 04/11/25 19:40 Surgeon: abner Preop Diagnosis: pain during labor Pre Op Diagnosis: iol Patient Data Age: 35 Gender: F Height: 1.73 m Weight: 105.5 kg Last Vital Signs Pulse 79 04/11/25 19:31 BP 133/81 04/11/25 19:31 O2 Del Method Room Air 04/11/25 16:38 Allergies Allergy/AdvReac Type Severity Reaction Status Date / Time bee venom protein (honey Allergy Swelling Verified 03/10/25 13:32 bee) (bees) bananas Allergy Mild Diarrhea Uncoded 03/10/25 13:32 avacados Allergy Diarrhea Uncoded 03/10/25 13:32 Home Medications ?Medication ?Instructions ?Recorded ?Confirmed ?Type choline 250 mg tablet 250 mg PO DAILY 03/10/25 04/11/25 History vitamin#30 30 mg iron-10 1 cap PO DAILY 03/10/25 04/11/25 History mg iron-folic acid 1 mg-omg3 capsule wheat dextrin 1 gram tablet 4 g PO DAILY 03/10/25 04/11/25 History (Benefiber (wheat dextrin)) Laboratory Tests 04/11/25 04/11/25 16:21 16:22 WBC 9.5 K/mm3 (4.5-10.0) RBC 4.27 M/mm3 (4.2-5.4) Hgb 11.7 L g/dL (12.0-15.0) Hct 36.0 L % (37.0-47.0) MCV 84.3 fl (80-100) MCH 27.4 pg (26-34) MCHC 32.5 g/dl (32-36) RDW 14.7 H % (11.5-14.5) Plt Count 158 k/mm3 (150-375) MPV 11.4 H fl (7.4-10.4) Immature Gran % (Auto) 1.2 H % (0-0.5) Neut % (Auto) 79.5 H % (45.5-73.1) Lymph % (Auto) 12.6 L % (18.3-44.2) [place] % (Auto) 5.1 % (2.6-8.5) Eos % (Auto) 1.4 % (0-4.4) Baso % (Auto) 0.2 % (0.2-1.2) Lymph # (Auto) 1.20 K/mm3 (0.9-3.2) [place] # (Auto) 0.5 K/mm3 (0.1-0.6) Eos # (Auto) 0.1 K/mm3 (0-0.3) Baso # (Auto) 0.0 K/mm3 (0.0-0.1) Abs Immat Gran (auto) 0.11 H K/mm3 (0.00-0.031) Absolute Neuts (auto) 7.6 H K/mm3 (1.3-6.7) Absolute Nucleated RBC 0.000 K/mm3 (0.0-0.012) Nucleated RBC % 0.0 % (0.0-0.2) Syphilis IgG/IgM Ab Non-reactive (Nonreactive) Blood Type A Positive Antibody Screen Negative Patient hx anesthesia problems: none Family hx anesthesia problems: none Results Review: All pre-operative results and documents have been reviewed as part of the pre- operative evaluation. [facility] Past Medical History Medical History (Updated 04/11/25 @ 19:41 by Tamela Antonio CRNA) Spondylolisthesis at L5-S1 level Psoriasis IUP (intrauterine ), incidental Obesity (BMI 30-39.9) Family History Family History (Updated 03/10/25 @ 13:39 by Rosalva Cobb RN) Father Heart disease Diabetes mellitus Sibling Hypothyroidism Social History Social History Smoking status: Never smoker Second hand tobacco smoke exposure: No Substance use: never Lack of Transportation: No Lack of Food: Never True Current Housing: I Have Housing Concerned About Future Housing: No Difficulty Paying Gas/Electric Bills: No Difficulty Paying for Meds: No Currently Unemployed: No Education: Bachelor's Degree Difficulty w/ Childcare or Family Care: No Spiritual care concerns: No Exam Day of Procedure 04/11/25 19:40
[2025-04-11] MEDS: ZOLPIDEM TARTRATE (*CRX) 5 MG TABLET 10 MG PO (23:48)
[2025-04-12] VITALS (371 sets, daily range): BP systolic 87–150; BP diastolic 30–107; PULSE 49–125; TEMP 35.9–37.1; O2SAT 85–100
[2025-04-12] MEDS: LACTATED RINGERS 1,000 ML 125 ML IV CONT ×3 (04:00→15:51)
[2025-04-12] MEDS: OXYTOCIN 30 UNITS/NS 500 ML 30 UNITS/500 ML BAG IV CONT (05:46)
--- NOTE | 2025-04-12 06:43 | PM.IMHP ---
H&P: HPI History of Present Illness Date/Time: 04/12/25 06:43 Chief Complaint: Term Narrative: This is a 35-year-old 1 para 0 whose last menstrual period was 07/08/2024, EDC is 04/08/2025, confirmed by 11 week ultrasound presents at 40 and 4 7th weeks gestation for induction of labor. She is negative for group B strep. Her has been relatively uncomplicated. This is a larger baby cervix is unfavorable. She was offered watchful waiting since anti care has been unremarkable however she opts for induction understanding this may increase her risk for section Review of Systems Review of Systems: All systems reviewed & are unremarkable except as noted in HPI and below PMFSH Past Medical History Medical History Spondylolisthesis at L5-S1 level Psoriasis IUP (intrauterine ), incidental Obesity (BMI 30-39.9) Family History Family History Father Heart disease Diabetes mellitus Sibling Hypothyroidism Social History Social History Smoking status: Never smoker Second hand tobacco smoke exposure: No Substance use: never Lack of Transportation: No Lack of Food: Never True Current Housing: I Have Housing Concerned About Future Housing: No Difficulty Paying Gas/Electric Bills: No Difficulty Paying for Meds: No Currently Unemployed: No Education: Bachelor's Degree Difficulty w/ Childcare or Family Care: No Spiritual care concerns: No Meds Home Medications and Allergies Home Medications ?Medication ?Instructions ?Recorded ?Confirmed ?Type choline 250 mg tablet 250 mg PO DAILY 03/10/25 04/11/25 History vitamin#30 30 mg iron-10 1 cap PO DAILY 03/10/25 04/11/25 History mg iron-folic acid 1 mg-omg3 capsule wheat dextrin 1 gram tablet 4 g PO DAILY 03/10/25 04/11/25 History (Benefiber (wheat dextrin)) Allergies Allergy/AdvReac Type Severity Reaction Status Date / Time bee venom protein (honey Allergy Swelling Verified 03/10/25 13:32 bee) (bees) bananas Allergy Mild Diarrhea Uncoded 03/10/25 13:32 avacados Allergy Diarrhea Uncoded 03/10/25 13:32 Vital Signs Vital Signs - 24 hr 04/11/25 16:31 04/11/25 16:38 04/11/25 16:46 Temperature Pulse Rate 75 80 Blood Pressure 138/83 131/87 Pulse Oximetry Oxygen Delivery Room Air 04/11/25 17:01 04/11/25 17:16 04/11/25 17:31 Temperature Pulse Rate 79 78 79 Blood Pressure 132/81 133/81 144/84 H Pulse Oximetry Oxygen Delivery 04/11/25 17:46 04/11/25 18:01 04/11/25 18:16 Temperature Pulse Rate 86 81 82 Blood Pressure 137/83 131/80 138/76 Pulse Oximetry Oxygen Delivery 04/11/25 18:30 04/11/25 18:31 04/11/25 18:46 Temperature 97.8 F Pulse Rate 78 77 Blood Pressure 138/83 146/84 H Pulse Oximetry Oxygen Delivery 04/11/25 19:01 04/11/25 19:16 04/11/25 19:31 Temperature Pulse Rate 79 84 79 Blood Pressure 140/89 130/85 133/81 Pulse Oximetry Oxygen Delivery 04/11/25 19:46 04/11/25 20:01 04/11/25 20:16 Temperature Pulse Rate 79 81 87 Blood Pressure 138/85 132/79 153/95 H Pulse Oximetry Oxygen Delivery 04/11/25 20:31 04/11/25 20:46 04/11/25 21:01 Temperature Pulse Rate 84 89 86 Blood Pressure 145/81 H 156/98 H 146/86 H Pulse Oximetry Oxygen Delivery 04/11/25 21:10 04/11/25 21:16 04/11/25 21:31 Temperature 97.8 F Pulse Rate 81 87 Blood Pressure 149/83 H 143/89 H Pulse Oximetry Oxygen Delivery 04/11/25 21:46 04/11/25 22:01 04/11/25 22:16 Temperature Pulse Rate 85 89 88 Blood Pressure 139/91 H 134/75 153/80 H Pulse Oximetry Oxygen Delivery 04/11/25 22:31 04/11/25 22:46 04/11/25 23:01 Temperature Pulse Rate 86 88 88 Blood Pressure 142/84 H 158/89 H Pulse Oximetry Oxygen Delivery 04/11/25 23:16 04/12/25 00:00 04/12/25 00:01 Temperature 97.9 F Pulse Rate 83 88 Blood Pressure 139/84 117/67 Pulse Oximetry Oxygen Delivery 04/12/25 00:32 04/12/25 00:35 04/12/25 00:38 Temperature Pulse Rate Blood Pressure Pulse Oximetry 96 97 95 Oxygen Delivery 04/12/25 00:43 04/12/25 00:48 04/12/25 00:53 Temperature Pulse Rate Blood Pressure Pulse Oximetry 98 97 96 Oxygen Delivery 04/12/25 00:58 04/12/25 01:03 04/12/25 01:08 Temperature Pulse Rate Blood Pressure Pulse Oximetry 96 96 97 Oxygen Delivery 04/12/25 01:13 04/12/25 01:18 04/12/25 01:23 Temperature Pulse Rate Blood Pressure Pulse Oximetry 96 98 96 Oxygen Delivery 04/12/25 01:28 04/12/25 01:33 04/12/25 01:38 Temperature Pulse Rate Blood Pressure Pulse Oximetry 98 97 97 Oxygen Delivery 04/12/25 01:41 04/12/25 01:46 04/12/25 01:51 Temperature Pulse Rate Blood Pressure Pulse Oximetry 97 95 95 Oxygen Delivery 04/12/25 01:56 04/12/25 02:01 04/12/25 02:06 Temperature Pulse Rate 82 Blood Pressure 129/81 Pulse Oximetry 97 96 95 Oxygen Delivery 04/12/25 02:10 04/12/25 02:11 04/12/25 02:16 Temperature 98.8 F Pulse Rate Blood Pressure Pulse Oximetry 95 95 Oxygen Delivery 04/12/25 02:21 04/12/25 02:26 04/12/25 02:31 Temperature Pulse Rate Blood Pressure Pulse Oximetry 95 96 98 Oxygen Delivery 04/12/25 02:36 04/12/25 02:41 04/12/25 02:46 Temperature Pulse Rate Blood Pressure Pulse Oximetry 97 98 99 Oxygen Delivery 04/12/25 02:51 04/12/25 02:56 04/12/25 03:00 Temperature 97.3 F L Pulse Rate Blood Pressure Pulse Oximetry 98 98 Oxygen Delivery 04/12/25 03:01 04/12/25 03:06 04/12/25 03:21 Temperature Pulse Rate Blood Pressure Pulse Oximetry 98 98 98 Oxygen Delivery 04/12/25 03:26 04/12/25 03:31 04/12/25 03:36 Temperature Pulse Rate Blood Pressure Pulse Oximetry 98 98 98 Oxygen Delivery 04/12/25 03:41 04/12/25 03:47 04/12/25 03:52 Temperature Pulse Rate Blood Pressure Pulse Oximetry 99 96 98 Oxygen Delivery 04/12/25 03:57 04/12/25 04:02 04/12/25 04:05 Temperature Pulse Rate Blood Pressure Pulse Oximetry 96 98 99 Oxygen Delivery 04/12/25 04:05 04/12/25 04:05 04/12/25 04:05 Temperature Pulse Rate Blood Pressure Pulse Oximetry 98 98 91 Oxygen Delivery 04/12/25 04:10 04/12/25 04:15 04/12/25 04:20 Temperature Pulse Rate Blood Pressure Pulse Oximetry 100 99 99 Oxygen Delivery 04/12/25 04:25 04/12/25 04:30 04/12/25 04:35 Temperature Pulse Rate Blood Pressure Pulse Oximetry 99 98 98 Oxygen Delivery 04/12/25 04:40 04/12/25 04:45 04/12/25 04:50 Temperature Pulse Rate Blood Pressure Pulse Oximetry 99 99 99 Oxygen Delivery 04/12/25 04:54 04/12/25 04:55 04/12/25 05:00 Temperature Pulse Rate 90 Blood Pressure 117/65 Pulse Oximetry 97 98 Oxygen Delivery 04/12/25 05:01 04/12/25 05:05 04/12/25 05:10 Temperature Pulse Rate 90 Blood Pressure 107/62 Pulse Oximetry 97 97 Oxygen Delivery 04/12/25 05:15 04/12/25 05:20 04/12/25 05:25 Temperature Pulse Rate Blood Pressure Pulse Oximetry 98 97 97 Oxygen Delivery 04/12/25 05:30 04/12/25 05:35 04/12/25 05:40 Temperature Pulse Rate Blood Pressure Pulse Oximetry 97 97 99 Oxygen Delivery 04/12/25 05:45 04/12/25 05:50 04/12/25 05:55 Temperature Pulse Rate Blood Pressure Pulse Oximetry 98 99 100 Oxygen Delivery 04/12/25 06:00 04/12/25 06:09 04/12/25 06:10 Temperature Pulse Rate Blood Pressure Pulse Oximetry 98 99 99 Oxygen Delivery 04/12/25 06:15 04/12/25 06:20 04/12/25 06:25 Temperature Pulse Rate Blood Pressure Pulse Oximetry 99 98 99 Oxygen Delivery 04/12/25 06:30 04/12/25 06:35 04/12/25 06:40 Temperature Pulse Rate Blood Pressure Pulse Oximetry 98 99 100 Oxygen Delivery Exam Const: General: cooperative, healthy appearing and comfortable Nutritional Appearance: overweight Orientation/consciousness: oriented to person, oriented to place and oriented to time HENMT: Head: normal to inspection Resp: Effort & Inspection: normal respiratory effort Cardio: Rate: regular rate Rhythm: regular rhythm Heart sounds: S1 normal heart sound present and S2 normal heart sound present GI: Inspection: normal to inspection (Gravid soft uterus) : External Female Exam: normal external appearance Speculum Exam - Vagina: normal appearance of the vagina Speculum Exam - Cervix: normal appearance of the cervix (Soft. heart tones reassuring) H&P: Results Labs Labs: Short CBC 04/11/25 Range/Units 16:21 WBC 9.5 (4.5-10.0) K/mm3 Hgb 11.7 L (12.0-15.0) g/dL Hct 36.0 L (37.0-47.0) % Plt Count 158 (150-375) k/mm3 Assessment and Plan Assessment and plan (1) IUP (intrauterine ), incidental: Code(s): Z33.1 - state, incidental Status: Acute Plan Proceed with medical induction of labor. Spontaneous vaginal delivery is expected. She is an epidural candidate
--- NOTE | 2025-04-12 12:39 | PM.OBPNLAB ---
Pain Control Date/time seen: 04/12/25 12:39 Pain control: tolerating well and epidural Pelvic Exam Dilation (cm): 2 Effacement (%): 50 station: -3 Amniotic membrane status: Leaking (arom thin mec)
--- NOTE | 2025-04-12 17:48 | PM.OBPNLAB ---
Pain Control Date/time seen: 04/12/25 17:48 Pain control: tolerating well and epidural Pelvic Exam Dilation (cm): 5 Effacement (%): 60 station: -3 Amniotic membrane status: Leaking (arom thin mec)
[2025-04-12] MEDS: ACETAMINOPHEN 500 MG TABLET 1000 MG PO (20:53)
[2025-04-13] VITALS (117 sets, daily range): BP systolic 103–154; BP diastolic 47–126; PULSE 60–124; RESP 14–18; TEMP 36.4–37.6; O2SAT 81–100
[2025-04-13] MEDS: TERBUTALINE SULFATE 1 MG/ML VIAL 0.25 MG SUB-Q (00:01)
--- NOTE | 2025-04-13 00:15 | WPDHPUPDATE1 ---
History and Physical Update Update Date/Time: 04/13/25 00:15 History and Physical has been reviewed, including an updated exam of the patient. There are NO changes in the patient's condition. Risks, benefits, and alternatives have been discussed and questions answered. Patient agrees to proceed with procedure. Patient remained 6cm for several despite adequate contractions. 4minute deceleration was noted which has responded to terbutaline repositioning and oxygen. In light of the small amount of change and the large baby the patient is offered section. Risks and benefits were reviewed great detail
[2025-04-13] MEDS: ONDANSETRON INJ 4 MG/2 ML VIAL IV PUSH (00:27)
[2025-04-13] MEDS: FAMOTIDINE 20 MG/2 ML VIAL IV PUSH (00:27)
[2025-04-13] MEDS: LACTATED RINGERS 1,000 ML 125 ML IV CONT (00:30)
[2025-04-13] MEDS: CYCLOBENZAPRINE HCL 10 MG TABLET PO (00:30)
--- NOTE | 2025-04-13 01:22 | W.PM.OBCSD ---
OB - Delivery Note Procedure Delivery date: 04/13/25 Pre-op diagnosis: Arrest of Decent and Failed Induction of Labor Post-op Diagnosis: Same Induction method: Per Cervidil Protocol Delivery augmentation: Rupture of Membranes Delivery monitor: External FHT, External Uterine and Internal Uterine Prior to decision for section, ACOG/SM labor guidelines were considered and discussed with the patient and staff. Decision made to proceed with the section.: Yes Procedure Performed: Primary Surgeon: Gerardo Staley MD Anesthesia type: Epidural Description of Procedure/Findings: Patient was admitted for induction of labor BP a 25 artificial rupture of for progressive slow stage of decelerations and beta to 6cm. Despite adequate contractions noted by intrauterine pressure catheter no change was noted anterior to the recurrence of deceleration she was offered section. After obtaining informed consent she was taken back prepped draped placed in the supine position. Under excellent epidural anesthesia the abdomen was entered in Pfannenstiel fashion progressed the layers to the fascia. Fascia was incised midline care number now fashion bilaterally. Underlying muscles sharply dissected. Parietal peritoneum and by Jaqueline clamps and by sharp dissection carried superiorly and inferiorly the dome of bladder. Bladder blade placed. Bladder flap formed. Bladder blade returned. Low-transverse incision made head delivered the DERECK position. Anterior posterior shoulder delivered spontaneously. Cord clamped x2 cut and passed off the table an excellent cry. Placenta delivered intact manually. Uterus delivered on the abdomen wrapped in moist towel. After assuring no membranes or debris remained in the uterus, the uterus was closed with continuous running locking 0 Vicryl from lateral edge to lateral edge. This followed by 2nd imbricating running locking 0 Vicryl from lateral edge to lateral edge. Hemostasis was assured. The uterus returned to the abdomen after inspecting the ovaries and tubes. The hysterotomy incision inspected 1 last time noted be hemostatic. Laps removed and accounted for the fascia closed with continuous running 0 Vicryl from lateral edge to lateral edge. Irrigation subcutaneous layer the skin closed with 4 Monocryl glue. QBL was 10 70. All sponge, needle, instrument counts were correct. There were no immediate complications Specimen: No Estimated Blood Loss: 1,070 Drains: No Packing: No Pathology: None sent Complications: No immediate complications Condition: Stable Disposition: PACU [place] Baby Date of : 04/13/25 Time of : 01:03 Gestational Age by Date: 40 Infant gender: Male Weight (pounds): 10 Weight (ounces): 11 presentation: vertex position: Right Occiput Anterior Placenta delivery description: Manual Removal Cord Vessel Description: 3 Vessels
--- NOTE | 2025-04-13 01:25 | P.DS_ITS ---
DS: Admitting Diagnosis Discharge Date 04/15/2025 Admitting Diagnosis Term DS: Discharge Diagnosis Discharge Diagnosis (1) IUP (intrauterine ), incidental: Code(s): Z33.1 - state, incidental Status: Acute DS: Summary Hospital Course Reason for hospitalization: Patient was admitted on the p.m. of 04/11/2025 for induction of labor secondary to 40 weeks gestation she underwent low-transverse section on the weight recorder of 04/13/2025 Hospital Course: Patient's hospital course. She remained afebrile. She was up, voiding without difficulty, diet, ambulating, generally without complaints Time Spent with Patient Time attestation: Total time spent providing and/or coordinating discharge services: Exam Const: General: cooperative, healthy appearing and comfortable Nutritional Appearance: overweight Orientation/consciousness: oriented to person, oriented to place and oriented to time HENMT: Head: normal to inspection Resp: Effort & Inspection: normal respiratory effort Cardio: Rate: regular rate Rhythm: regular rhythm Heart sounds: S1 normal heart sound present and S2 normal heart sound present GI: Inspection: normal to inspection (Gravid soft uterus) : External Female Exam: normal external appearance Speculum Exam - Vagina: normal appearance of the vagina Speculum Exam - Cervix: normal appearance of the cervix (Soft. heart tones reassuring) Discharge Plan Discharge Attending physician on discharge: Gerardo Galvan Discharging Clinician: Gerardo Galvan Patient Disposition: Home Activity: january shower, no straining and pelvic rest Diet: heart healthy Wound Care Instructions: follow printed instructions Patient Instructions: Antibiotic Form Patient Language: Telugu Stand Alone Forms: General Discharge Information Follow-up/Referrals: Gerardo Galvan MD [Physician] - Discharge Medications: New hydrocodone-acetaminophen 5-325 mg tablet 1 tablet PO Q4H PRN (Reason: pain) Qty: 20 0RF Continued PNV [id number] 30 mg iron-10 mg iron-1 mg capsule 1 cap PO DAILY choline 250 mg tablet 250 mg PO DAILY Benefiber (wheat dextrin) 1 gram tablet 4 g PO DAILY Date of admission: 04/11/25 15:56 Primary Care Provider: YrnMigdalia DO Admitting Provider: Gerardo Galvan Attending physician on admission: Gerardo Galvan Condition: Stable
[2025-04-13] MEDS: fentaNYL CITRATE INJ (*CRX) 100 MCG/2 ML VIAL 25 MCG IV PUSH (01:41)
[2025-04-13] MEDS: OXYTOCIN 30 UNITS/NS 500 ML 30 UNITS/500 ML BAG 125 UNITS IV CONT (02:45)
[2025-04-13] MEDS: ACETAMINOPHEN 500 MG TABLET 1000 MG PO ×3 (06:58→19:27)
[2025-04-13] MEDS: KETOROLAC 15 MG/ML VIAL (*BKC) IV PUSH ×2 (06:59→13:35)
[2025-04-13] MEDS: DEXTROSE 5%/0.45% SOD CHL 1,000 ML 125 ML IV CONT (08:47)
[2025-04-13] MEDS: SIMETHICONE 80 MG TAB.CHEW PO ×3 (08:47→18:36)
[2025-04-13] MEDS: MULTIVIT/MIN/PREN/FOL AC/IRON TABLET 1 TAB PO (08:47)
[2025-04-13] MEDS: DOCUSATE SODIUM 100 MG CAPSULE PO ×2 (08:47→18:36)
--- NOTE | 2025-04-13 10:30 | PC.NURSE ---
Attempted to meet patient and offer services. She is sleeping currently. Will plan to speak with patient when she is ready.
--- NOTE | 2025-04-13 13:35 | PC.NURSE ---
Primary RN states that patient is currently . When entering the room, mom is laid back with baby across her body and latched to the right breast. She says that baby had just let go and had fed for about 15 minutes. She was able to get him to latch again but he held the nipple in his mouth without sucking. Suggested mother can offer the other breast if baby is interested but that 15 minutes is an acceptable feeding. Parents educated on sleepy infants, expected feeding duration, and burping between breasts. Mom says that she feels a strong tugging with latch on but does not have any pain. She says she can tell when he has a good vs. bad latch by how it feels. Father present at bedside and supportive. Parents are encouraged to call out for any needed assistance. Primary RN updated.
[2025-04-13] MEDS: IBUPROFEN 600 MG TABLET PO (19:27)
[2025-04-14 00:23] VITALS: BP 109/56; PULSE 84; RESP 18; TEMP 36.5; O2SAT 98
[2025-04-14 05:53] LABS: Hematocrit 26.2 % (37.0-47.0); Hemoglobin 8.1 g/dL (12.0-15.0); Immature Granulocyte Percent A 1.7 % (0-0.5); Immature Platelet Fraction Pct 8.2 % (0.9-11.2); Lymphocytes Absolute Auto 1.11 K/mm3 (0.9-3.2); Mean Corpuscular HGB Conc 30.9 g/dl (32-36); Mean Corpuscular Hemoglobin 27.8 pg (26-34); Mean Corpuscular Volume 90.0 fl (80-100); Nucleated Red Blood Cells Absolute Auto 0.000 K/mm3 (0.0-0.012); Nucleated Red Blood Cells Perc 0.0 % (0.0-0.2); Platelet Count Result 135 k/mm3 (150-375); Red Blood Count 2.91 M/mm3 (4.2-5.4); White Blood Count 8.9 K/mm3 (4.5-10.0)
--- NOTE | 2025-04-14 07:05 | P.PNOB_ITS ---
OB - PN: Subj Subjective Date/time seen: 04/14/25 07:05 Patient comments: no complaints, pain well controlled, tolerating diet and flatus present [place] baby status: doing well [place] feeding status: exclusively breast feeding OB - PN: Obj Data Labs 04/14/25 05:41 Labs: Laboratory Results - last 24 hr 04/14/25 05:41 WBC 8.9 RBC 2.91 L Hgb 8.1 L D Hct 26.2 L MCV 90.0 D MCH 27.8 MCHC 30.9 L RDW 15.5 H Plt Count 135 L MPV 11.4 H Immature Gran % (Auto) 1.7 H Neut % (Auto) 77.9 H Lymph % (Auto) 12.5 L Stewart % (Auto) 6.2 Eos % (Auto) 1.6 Baso % (Auto) 0.1 L Lymph # (Auto) 1.11 Stewart # (Auto) 0.6 Eos # (Auto) 0.1 Baso # (Auto) 0.0 Abs Immat Gran (auto) 0.15 H Absolute Neuts (auto) 7.0 H Absolute Nucleated RBC 0.000 Nucleated RBC % 0.0 % Immature Plt Fraction 8.2 OB - PN A/P Assessment and Plan (1) IUP (intrauterine ), incidental: Code(s): Z33.1 - state, incidental Status: Acute Plan routine care Time Spent With Patient Time: Total time spent is greater than 50% in coordination of care (as documented) at patient's floor/unit and/or counseling patient: Review of Systems 2 Review of Systems: All systems reviewed & are unremarkable except as noted in HPI and below Exam 2 Const: General: cooperative, healthy appearing and comfortable Nutritional Appearance: overweight Orientation/consciousness: oriented to person, oriented to place and oriented to time HENMT: Head: normal to inspection Resp: Effort & Inspection: normal respiratory effort Cardio: Rate: regular rate Rhythm: regular rhythm Heart sounds: S1 normal heart sound present and S2 normal heart sound present GI: Inspection: normal to inspection (Gravid soft uterus) : External Female Exam: normal external appearance Speculum Exam - Vagina: normal appearance of the vagina Speculum Exam - Cervix: normal appearance of the cervix (Soft. heart tones reassuring)
[2025-04-14 07:25] VITALS: BP 120/72; PULSE 83; RESP 16; TEMP 37; O2SAT 98
--- NOTE | 2025-04-14 07:57 | WPDANLDPN2 ---
Anes-Prog Note L&D Date/Time: 04/14/25 07:57 Neuro status: Neuro function grossly intact. Cardiovascular status: normal Respiratory status: normal Airway patency: baseline Mental status: baseline Post-Op hydration status: normal Vital Signs: Last Vital Signs Temp 36.5 C 04/14/25 00:23 Pulse 84 04/14/25 00:23 Resp 18 04/14/25 00:23 BP 109/56 L 04/14/25 00:23 Pulse Ox 98 04/14/25 00:23 O2 Del Method Room Air 04/13/25 20:00 Pain score (VAS): 0 I/O: Intake & Output 04/13/25 04/13/25 04/14/25 15:59 23:59 07:59 Output Total 800 200 Balance -800 -200 Post-procedural complaints: none Patient feedback: Patient satisfied with anesthetic care.
--- NOTE | 2025-04-14 07:58 | WPDANLDNPN2 ---
Anes-Prog Note L&D-Neuraxial Date/Time: 04/14/25 07:58 Patient feedback: Patient satisfied with post-operative pain management.
[2025-04-14] MEDS: ACETAMINOPHEN 500 MG TABLET 1000 MG PO ×3 (08:05→20:24)
[2025-04-14] MEDS: IBUPROFEN 600 MG TABLET PO ×3 (08:05→20:24)
[2025-04-14] MEDS: SIMETHICONE 80 MG TAB.CHEW PO ×3 (08:06→17:49)
[2025-04-14] MEDS: DOCUSATE SODIUM 100 MG CAPSULE PO ×2 (08:06→17:48)
[2025-04-14] MEDS: MULTIVIT/MIN/PREN/FOL AC/IRON TABLET 1 TAB PO (10:24)
[2025-04-14 15:27] VITALS: BP 147/88; PULSE 87; RESP 16; TEMP 36.7; O2SAT 100
--- NOTE | 2025-04-14 17:50 | PC.NURSE ---
1250. Mom independent with feedings so far, she reports a little discomfort on the right breast at times. Observed mother latching to the [right] breast in [football] position. Infant [was] able to maintain an appropriate latch. Mother [declines] nipple pain/discomfort [throughout feeding]. Encouraged mother to keep infant awake and nursing at the breast for as long as baby desires. Mother taught to listen for infant swallowing during feedings. Reviewed using the blue feeding sheet to record time and duration of feeding. We reviewed positioning and alignment to prevent pain and discomfort. Mother voiced understanding of the education shared, to call for assistance if the infant does not latch or if there is discomfort with . name/number on communication board. Reported to the Primary RN.?
[2025-04-14 18:53] VITALS: BP 130/85; PULSE 79; RESP 16; TEMP 36.9; O2SAT 100
[2025-04-14] MEDS: LIDOCAINE 5% PATCH 1 PATCH TRANSDERM (20:24)
[2025-04-15] MEDS: ACETAMINOPHEN 500 MG TABLET 1000 MG PO ×2 (04:30→10:34)
[2025-04-15] MEDS: IBUPROFEN 600 MG TABLET PO ×2 (04:30→10:34)
--- NOTE | 2025-04-15 05:50 | P.PNOB_ITS ---
OB - PN: Subj Subjective Date/time seen: 04/15/25 05:50 Patient comments: no complaints, pain well controlled, tolerating diet and flatus present [place] baby status: doing well OB - PN: Obj Data Labs 04/14/25 05:41 Labs: Laboratory Results - last 24 hr 04/14/25 05:41 WBC 8.9 RBC 2.91 L Hgb 8.1 L D Hct 26.2 L MCV 90.0 D MCH 27.8 MCHC 30.9 L RDW 15.5 H Plt Count 135 L MPV 11.4 H Immature Gran % (Auto) 1.7 H Neut % (Auto) 77.9 H Lymph % (Auto) 12.5 L [place] % (Auto) 6.2 Eos % (Auto) 1.6 Baso % (Auto) 0.1 L Lymph # (Auto) 1.11 [place] # (Auto) 0.6 Eos # (Auto) 0.1 Baso # (Auto) 0.0 Abs Immat Gran (auto) 0.15 H Absolute Neuts (auto) 7.0 H Absolute Nucleated RBC 0.000 Nucleated RBC % 0.0 % Immature Plt Fraction 8.2 OB - PN A/P Assessment and Plan (1) IUP (intrauterine ), incidental: Code(s): Z33.1 - state, incidental Status: Acute Plan home Time Spent With Patient Time: Total time spent is greater than 50% in coordination of care (as documented) at patient's floor/unit and/or counseling patient: Review of Systems 2 Review of Systems: All systems reviewed & are unremarkable except as noted in HPI and below Exam 2 Const: General: cooperative, healthy appearing and comfortable Nutritional Appearance: overweight Orientation/consciousness: oriented to person, oriented to place and oriented to time HENMT: Head: normal to inspection Resp: Effort & Inspection: normal respiratory effort Cardio: Rate: regular rate Rhythm: regular rhythm Heart sounds: S1 normal heart sound present and S2 normal heart sound present GI: Inspection: normal to inspection (Gravid soft uterus) : External Female Exam: normal external appearance Speculum Exam - Vagina: normal appearance of the vagina Speculum Exam - Cervix: normal appearance of the cervix (Soft. heart tones reassuring)
[2025-04-15 07:40] VITALS: BP 117/65; PULSE 86; RESP 18; TEMP 37.2; O2SAT 100
[2025-04-15] MEDS: SIMETHICONE 80 MG TAB.CHEW PO (09:03)
[2025-04-15] MEDS: DOCUSATE SODIUM 100 MG CAPSULE PO (09:03)
[2025-04-15] MEDS: MULTIVIT/MIN/PREN/FOL AC/IRON TABLET 1 TAB PO (09:03)
--- NOTE | 2025-04-15 10:00 | PC.NURSE ---
Patient viewed the discharge video Mother & Baby Care, The First Two Weeks. Patient was given the opportunity and encouraged to ask questions. Patient verbalized understanding of information shared and has been given the mother/baby guide for home reference.
[2025-04-16 10:24] VITALS: BP 127/73; PULSE 85; RESP 18; TEMP 37.1; O2SAT 100
--- NOTE | 2025-04-24 16:02 | PC.NURSE ---
Mother verbalizes she is able to independently latch with appropriate positioning and alignment. She denies any nipple discomfort and is responsively . Infant is currently meeting outcomes for weight, output, jaundice, blood sugar and feeding frequencies of 8-12 times in 24 hours. Mother is currently using a nipple shield when feeding infant. Reviewed good handwashing, cleaning the nipple shield and the appropriate way to apply and use as a tool. Discussed with mom the nipple shield precautions, possible complications associated with the risks and benefits. Reviewed practicing with a nipple shield, then without and how to protect the milk supply and production. Mom and baby guide referred to as a resource for outpatient services, community resources and when to call a provider. Mom voiced understanding of the importance of hand expression, nipple stimulation and initiating a pumping schedule if infant continues to nurse with the shield. Reported to the Primary RN. Mother declines any additional assistance or education at this time.
== END 2025-04-15 12:05 | disposition home or self-care (01) | DRG 788 ==
LOC: ANHLDR 04-13 01:27 → ANHOB2 04-13 07:35
PROVIDERS: Admitting Provider Obstetrics & Gynecology; Visit Provider Obstetrics & Gynecology
PROC: 10D00Z1 Extraction of Products of Conception, Low, Open Approach (ICD-10-PCS; CPT 59514; principal; 2025-04-13 00:30)
DX: O34.33 Maternal care for cervical incompetence, third trimester (principal); O36.63X0 Maternal care for excessive fetal growth, third trimester, not applicable or unspecified; O77.0 Labor and delivery complicated by meconium in amniotic fluid; Z37.0 Single live birth; Z3A.40 40 weeks gestation of pregnancy; O36.8330 Maternal care for abnormalities of the fetal heart rate or rhythm, third trimester, not applicable or unspecified; O61.0 Failed medical induction of labor; O62.1 Secondary uterine inertia
CPT/HCPCS: 36415; 85025; 85055; 86593; 86850; 86900; 86901; A9270; J1885; J2004; J2274; J2371; J2405; J2590; J2795; J3010; J3105; J7120